=== PATIENT | male | born 1980 | race Caucasian/White ===

== ENCOUNTER 2022-07-08 15:08 | Emergency (ER) | payer BC, OTHER, SELFPAY ==
[2022-07-08 15:16] VITALS: BP 138/97; PULSE 77; RESP 18; TEMP 36.5; O2SAT 99
--- NOTE | 2022-07-08 15:32 | ED.SKABFB ---
HPI - Skin/Abscess/Foreign Bdy General Chief complaint: Skin/Abscess/Foreign Body Stated complaint: Sore Top of Head Time Seen by Provider: 07/08/22 15:20 Source: patient Mode of arrival: ambulatory Limitations: no limitations History of Present Illness HPI narrative: 41-year-old male presents with complaint of skin tag to scalp that he noticed over the last few days. States his sister had skin cancer, also want to take his skin checked. Patient does not have a primary care physician. Denies pain. All systems reviewed and negative except as noted above. Related Data Home Medications Medication Instructions Recorded Confirmed No Home Medications 07/08/22 07/08/22 Allergies Allergy/AdvReac Type Severity Reaction Status Date / Time NSAIDS (Non-Steroidal Allergy Mild Hives Verified 07/08/22 15:21 Anti-Inflamma Penicillins Allergy Mild Unknown Verified 07/08/22 15:21 Review of Systems Review of Systems: CONSTITUTIONAL: Denies fever, chills, or sweats. EYES: Denies visual changes, redness, or discharge. ENT: Denies rhinorrhea, congestion, sore throat, or otalgia. CARDIOVASCULAR: Denies chest pain, palpitations, or edema. RESPIRATORY: Denies cough or dyspnea. GASTROINTESTINAL: Denies abdominal pain, nausea, vomiting, or diarrhea. GENITOURINARY: Denies dysuria or hematuria. SKIN: Denies rash or itching. Reports skin tag to scalp. MUSCULOSKELETAL: Denies back pain, joint pain, or myalgia. NEUROLOGIC: Denies headache, numbness, or weakness. PSYCHIATRIC: Denies anxiety or depression. All other systems reviewed are negative, except as documented in HPI. [facility] Past Medical History Medical History Seasonal allergies Surgical History Surgical History H/O vasectomy Family History Family History Mother Lung cancer Social History Social History Smoking packs per day: 0.5 Smoking cigarettes per day: 10.0 Years smoked: 17 Smoking pack-years: 8.50 Smoking status: Current every day smoker Alcohol intake: current Substance use: never Additional occupation/education comments: retired Agree to blood products: Yes Comments At time of signature, agree with nursing past medical, surgical, social and family history. There is no relevant family history pertinent to the presenting complaint. Exam Narrative: GENERAL: This is a well-nourished, well-developed patient, in no apparent distress. HEAD: normocephalic, atraumatic. EYES: PERRL. Sclera clear/white. Vision is grossly intact. EARS: External ears normal NOSE: External nose normal NECK: Neck supple, non-tender without lymphadenopathy, masses or thyromegaly. CARDIOVASCULAR: Regular rate and rhythm without murmurs, gallops, or rubs. RESPIRATORY: Clear to auscultation. Breath sounds equal bilaterally. No wheezes, rales, or rhonchi. SKIN: warm, Dry, intact with no rash, good texture and turgor. Brown colored, flat, scaly lesion to scalp. Approximately 0.5 cm diameter. NEURO: awake, alert, and oriented to person, place and time. There were no obvious focal neurologic abnormalities. EXTREMITIES: No joint tenderness, effusion, or edema noted. Course Course Level of Care: Express Care Visit Vital Signs Vital signs: Vital Signs Temperature 36.5 C 07/08/22 15:16 Pulse Rate 77 07/08/22 15:16 Respiratory Rate 18 07/08/22 15:16 Blood Pressure 138/97 H 07/08/22 15:16 Pulse Oximetry 99 07/08/22 15:16 Oxygen Delivery Room Air 07/08/22 15:16 Temperature 36.5 C 07/08/22 15:16 Pulse Rate 77 07/08/22 15:16 Respiratory Rate 18 07/08/22 15:16 Blood Pressure 138/97 H 07/08/22 15:16 Pulse Oximetry 99 07/08/22 15:16 Oxygen Delivery Room Air 07/08/22 15:16 Re
== END 2022-07-08 15:33 | disposition home or self-care (01) ==
PROVIDERS: Emergency Provider Nurse Practitioner Family
DX: L98.9 Disorder of the skin and subcutaneous tissue, unspecified (principal); Z98.52 Vasectomy status; F17.290 Nicotine dependence, other tobacco product, uncomplicated
CPT/HCPCS: 99211; G0463

== ENCOUNTER 2022-10-28 09:54 | Emergency (ER) | payer BC, OTHER, SELFPAY ==
[2022-10-28 10:07] VITALS: BP 131/78; PULSE 73; RESP 16; TEMP 36.4; O2SAT 98
--- NOTE | 2022-10-28 10:21 | ED.URI ---
HPI - URI/Sore Throat General Chief Complaint: Upper Respiratory Infection Stated Complaint: Sore Throat,Headache,Congestion Time Seen by Provider: 10/28/22 10:21 Source: patient Mode of arrival: ambulatory Limitations: no limitations History of Present Illness HPI Narrative: 41-year-old male presents with complaint headache, severe sore throat, fatigue and body aches starting at midnight. Patient reports that his was diagnosed with strep throat 2 days ago. Is having similar symptoms. Patient is afebrile. Denies nausea vomiting diarrhea. All systems reviewed and negative except as noted above. Related Data Allergies Allergy/AdvReac Type Severity Reaction Status Date / Time NSAIDS (Non-Steroidal Allergy Mild Hives Verified 10/28/22 10:08 Anti-Inflamma Penicillins Allergy Mild Unknown Verified 10/28/22 10:08 Review of Systems Review of Systems: CONSTITUTIONAL: Denies fever, chills, or sweats. EYES: Denies visual changes, redness, or discharge. ENT: Denies rhinorrhea, congestion . Reports sore throat. Denies otalgia. CARDIOVASCULAR: Denies chest pain, palpitations, or edema. RESPIRATORY: Denies cough or dyspnea. GASTROINTESTINAL: Denies abdominal pain, nausea, vomiting, or diarrhea. GENITOURINARY: Denies dysuria or hematuria. SKIN: Denies rash or itching. MUSCULOSKELETAL: Denies back pain, joint pain, or myalgia. NEUROLOGIC: reports headache. Denies numbness, or weakness. PSYCHIATRIC: Denies anxiety or depression. All other systems reviewed are negative, except as documented in HPI. [facility] Past Medical History Medical History Seasonal allergies Surgical History Surgical History H/O vasectomy Family History Family History Mother Lung cancer Social History Social History Smoking packs per day: 0.5 Smoking cigarettes per day: 10.0 Years smoked: 17 Smoking pack-years: 8.50 Smoking status: Current every day smoker Alcohol intake: current Substance use: never Living arrangements: with family Occupation/Education: occupation Additional occupation/education comments: retired Agree to blood products: Yes Comments At time of signature, agree with nursing past medical, surgical, social and family history. There is no relevant family history pertinent to the presenting complaint. Exam Narrative: GENERAL: This is a well-nourished, well-developed patient, in no apparent distress. HEAD: normocephalic, atraumatic. EYES: PERRL. Sclera clear/white. Vision is grossly intact. EARS: External ears normal, auditory canals clear and without drainage, TMs normal without perforation. Hearing grossly intact. NOSE: External nose normal with Clear nasal drainage. THROAT: Mucous membranes moist, Erythematous with mild swelling exudates. NECK: Neck supple, non-tender without lymphadenopathy, masses or thyromegaly. CARDIOVASCULAR: Regular rate and rhythm without murmurs, gallops, or rubs. RESPIRATORY: Clear to auscultation. Breath sounds equal bilaterally. No wheezes, rales, or rhonchi. SKIN: warm, Dry, intact with no suspicious lesions or rash, good texture and turgor. NEURO: awake, alert, and oriented to person, place and time. There were no obvious focal neurologic abnormalities. EXTREMITIES: No joint tenderness, effusion, or edema noted. Course Course Level of Care: Express Care Visit Vital Signs Vital signs: Vital Signs Temperature 36.4 C L 10/28/22 10:07 Pulse Rate 73 10/28/22 10:07 Respiratory Rate 16 10/28/22 10:07 Blood Pressure 131/78 10/28/22 10:07 Pulse Oximetry 98 10/28/22 10:07 Oxygen Delivery Room Air 10/28/22 10:07 Temperature 36.4 C L 10/28/22 10:07 Pulse Rate 73 10/28/22 10:07 Respiratory Rate
== END 2022-10-28 10:32 | disposition home or self-care (01) ==
PROVIDERS: Emergency Provider Nurse Practitioner Family
DX: J02.9 Acute pharyngitis, unspecified (principal); Z20.818 Contact with and (suspected) exposure to other bacterial communicable diseases; F17.210 Nicotine dependence, cigarettes, uncomplicated; Z98.52 Vasectomy status
CPT/HCPCS: 87081; 87880; 99213; G0463

== ENCOUNTER 2023-12-07 12:32 | Outpatient (CLI) | payer OTHER, SELFPAY ==
--- NOTE | ~2023-12-07 | US_ITS ---
EXAMINATION: US soft tissue chest DATE: 12/07/2023 13:09 INDICATION: Right chest wall mass TECHNIQUE: Multiple grayscale and Doppler ultrasound images of the region of concern at the anterior chest wall were obtained. COMPARISON: None FINDINGS: The palpable abnormality of concern corresponds to an ovoid 1.5 x 1.0 x 0.4 cm region in the subcutan eous tissues which is minimally hyperechoic but with similar echotexture and internal septated jerri ecture as the surrounding subcutaneous fat. This overlies one of the echogenic and shadowing ribs. Th is could represent either a small lipoma with indiscernible peripheral capsule or focal inflammation of the subcutaneous fat. No other abnormal masses or fluid collections identified. IMPRESSION: 1. 1.5 x 1.0 x 0.4 cm lesion in the subcutaneous fat at the region of concern which is most likely ei ther a lipoma or focal inflammation of the otherwise normal subcutaneous fat. Reviewed, dictated and finalized at location A. IMPRESSION: 1. 1.5 x 1.0 x 0.4 cm lesion in the subcutaneous fat at the region of concern w hich is most likely either a lipoma or focal inflammation of the otherwise norm al subcutaneous fat.
== END 2023-12-07 12:33 | disposition home or self-care (01) ==
PROVIDERS: PCP Nurse Practitioner Family; Visit Provider Physician Assistant Medical
DX: R22.2 Localized swelling, mass and lump, trunk (principal)
CPT/HCPCS: 76604